=== PATIENT | female | born 1980 | race Two or more races ===

== ENCOUNTER → 2016-06-21 | Outpatient (CLI) | payer OTHER ==
[2016-06-21 11:07] LABS: Basophils # (auto) 0 uL; Basophils % (auto) 0.4 % (0.0-2.0); Eosinophils # (auto) 0.3 uL; Eosinophils % (auto) 3.3 % (0.0-7.0); Hematocrit 44.6 % (36.0-46.0); Hemoglobin 14.8 g/dL (12.2-16.2); Lymphocytes # (auto) 1.8 uL; Lymphocytes % (auto) 19.5 % (10.0-50.0); Mean Corpuscular Hemoglobin 29.4 pg (28.0-32.0); Mean Corpuscular Hgb Conc. 33.2 g/dL (32.0-36.0); Mean Corpuscular Volume 88.6 fL (80.0-100.0); Mean Platelet Volume 6.9 fL (7.4-10.4); Monocytes # (auto) 0.5 uL; Monocytes % (auto) 5.6 % (0.0-12.0); Neutrophils # (auto) 6.6 uL; Neutrophils % (auto) 71.2 % (37.0-80.0); Platelet Count (auto) 406 10^3/uL (140-450); Red Cell Distribution Width 12.3 % (11.6-16.0); White Blood Cell 9.2 10^3/uL (4.4-10.8)
[2016-06-21 11:25] LABS: Albumin 3.8 g/dL (3.4-5.0); BUN/Creatinine Ratio 10.7; Bilirubin, Total 0.4 mg/dL (0.2-1.0); Calcium 8.2 mg/dL (8.5-10.1); Total Protein 7.7 g/dL (6.4-8.2)
[2016-06-21 11:28] LABS: Urine Bilirubin Negative (Negative); Urine Blood Negative /uL (Negative); Urine Color Yellow (Yellow); Urine Glucose Normal (Normal); Urine Ketone Negative (Negative); Urine Mucus FEW (None Seen); Urine Nitrite Negative (Negative); Urine RBC <1 /hpf (0 - 4); Urine Squamous Epithelial Cell FEW /hpf (<5); Urine Urobilinogen Normal (Negative); Urine pH 5.5 (5.0-8.0)
== END | disposition home or self-care (01) ==
LOC: LAB 09:43
PROVIDERS: ATTEND Internal Medicine
DX: Z00.00 Encounter for general adult medical examination without abnormal findings (principal); I10 Essential (primary) hypertension; E55.9 Vitamin D deficiency, unspecified
CPT/HCPCS: 36415; 80053; 80061; 81001; 82306; 84439; 84443; 84481; 85025

== ENCOUNTER → 2016-11-09 | Outpatient (CLI) | payer OTHER | END | disposition home or self-care (01) | LOC: LAB 11:08 | PROVIDERS: ATTEND Internal Medicine | DX: Z74.09 Other reduced mobility (principal) | CPT/HCPCS: 36415; 85652; 86141 ==

== ENCOUNTER → 2018-06-18 | Outpatient (CLI) | payer OTHER ==
[2018-06-18 12:34] LABS: Basophils # (auto) 0.1 uL; Basophils % (auto) 0.8 % (0.0-2.0); Eosinophils # (auto) 0.4 uL; Eosinophils % (auto) 4.8 % (0.0-7.0); Hematocrit 43.8 % (36.0-46.0); Hemoglobin 14.9 g/dL (12.2-16.2); Lymphocytes # (auto) 1.7 uL; Lymphocytes % (auto) 19.9 % (10.0-50.0); Mean Corpuscular Hemoglobin 30.8 pg (28.0-32.0); Mean Corpuscular Volume 90.4 fL (80.0-100.0); Monocytes # (auto) 0.6 uL; Monocytes % (auto) 6.5 % (0.0-12.0); Neutrophils # (auto) 5.8 uL; Nucleated Red Blood Cells % 0.1 %; Platelet Count (auto) 360 10^3/uL (140-450); Red Blood Cells 4.84 10^6/uL (4.0-5.20); Red Cell Distribution Width 12.3 % (11.8-14.3); White Blood Cell 8.6 10^3/uL (4.4-10.8)
[2018-06-18 13:27] LABS: Albumin 3.8 g/dL (3.4-5.0); BUN/Creatinine Ratio 13.2; Bilirubin, Total 0.5 mg/dL (0.2-1.0); Calcium 8.6 mg/dL (8.5-10.1); Total Protein 7.8 g/dL (6.4-8.2)
== END | disposition home or self-care (01) ==
LOC: LAB 10:50
PROVIDERS: ATTEND Physician Assistant
DX: Z00.00 Encounter for general adult medical examination without abnormal findings (principal); E78.1 Pure hyperglyceridemia; F41.8 Other specified anxiety disorders
CPT/HCPCS: 36415; 80053; 80061; 85025

== ENCOUNTER → 2019-08-21 | Outpatient (CLI) | payer OTHER | END | disposition home or self-care (01) | LOC: LAB 15:26 | PROVIDERS: ATTEND Nurse Practitioner Family | DX: R19.7 Diarrhea, unspecified (principal) | CPT/HCPCS: 87045; 87427; 87493 ==

== ENCOUNTER → 2019-09-03 | Outpatient (CLI) | payer OTHER ==
[2019-09-03 11:24] LABS: Basophils # (auto) 0.1 10 ^3/uL (0-0.2); Basophils % (auto) 1.2 % (0.0-2.0); Eosinophils # (auto) 0.2 10 ^3/uL (0-0.8); Eosinophils % (auto) 2.3 % (0.0-7.0); Hematocrit 43.2 % (36.0-46.0); Hemoglobin 14.5 g/dL (12.2-16.2); Lymphocytes # (auto) 1.8 10 ^3/uL (0.4-5.4); Mean Corpuscular Hgb Conc. 33.7 g/dL (32.0-36.0); Mean Corpuscular Volume 89.1 fL (80.0-100.0); Monocytes # (auto) 0.5 10 ^3/uL (0-1.3); Neutrophils # (auto) 5.1 10 ^3/uL (1.6-8.6); Neutrophils % (auto) 66.5 % (37.0-80.0); Nucleated Red Blood Cells % 0.1 %; Platelet Count (auto) 420 10^3/uL (140-450); Red Blood Cells 4.85 10^6/uL (4.0-5.20); Red Cell Distribution Width 12.5 % (11.8-14.3); White Blood Cell 7.7 10^3/uL (4.4-10.8)
[2019-09-03 11:56] LABS: Albumin 3.9 g/dL (3.4-5.0); BUN/Creatinine Ratio 17.9; Calcium 8.5 mg/dL (8.5-10.1); Potassium 3.8 mmol/L (3.5-5.1)
[2019-09-03 11:59] LABS: Bilirubin, Total 0.4 mg/dL (0.2-1.0); Total Protein 7.8 g/dL (6.4-8.2)
== END | disposition home or self-care (01) ==
LOC: LAB 11:07
PROVIDERS: ATTEND Physician Assistant
DX: Z00.00 Encounter for general adult medical examination without abnormal findings (principal); E78.1 Pure hyperglyceridemia; R94.5 Abnormal results of liver function studies
CPT/HCPCS: 36415; 80053; 80061; 85025

== ENCOUNTER → 2021-05-20 | Outpatient (CLI) | payer OTHER ==
[2021-05-20 09:48] LABS: Basophils # (auto) 0.1 10 ^3/uL (0-0.2); Basophils % (auto) 0.7 % (0.0-2.0); Eosinophils # (auto) 0.2 10 ^3/uL (0-0.8); Eosinophils % (auto) 2.4 % (0.0-7.0); Hematocrit 40.5 % (36.0-46.0); Hemoglobin 13.8 g/dL (12.2-16.2); Lymphocytes # (auto) 1.8 10 ^3/uL (0.4-5.4); Lymphocytes % (auto) 24.3 % (10.0-50.0); Mean Corpuscular Hemoglobin 29.8 pg (28.0-32.0); Mean Corpuscular Hgb Conc. 34.1 g/dL (32.0-36.0); Mean Corpuscular Volume 87.4 fL (80.0-100.0); Monocytes # (auto) 0.4 10 ^3/uL (0-1.3); Monocytes % (auto) 5.8 % (0.0-12.0); Neutrophils % (auto) 66.8 % (37.0-80.0); Red Blood Cells 4.63 10^6/uL (4.0-5.20); Red Cell Distribution Width 12.4 % (11.8-14.3); White Blood Cell 7.5 10^3/uL (4.4-10.8)
[2021-05-20 11:33] LABS: Potassium 3.9 mmol/L (3.5-5.1)
[2021-05-20 12:05] LABS: Albumin 3.4 g/dL (3.4-5.0); BUN/Creatinine Ratio 8.3; Bilirubin, Total 0.4 mg/dL (0.2-1.0); Calcium 8.6 mg/dL (8.5-10.1); Total Protein 7.2 g/dL (6.4-8.2)
== END | disposition home or self-care (01) ==
LOC: LAB 09:20
PROVIDERS: ATTEND Nurse Practitioner Family
DX: Z00.00 Encounter for general adult medical examination without abnormal findings (principal); E78.1 Pure hyperglyceridemia; R94.5 Abnormal results of liver function studies; J38.2 Nodules of vocal cords
CPT/HCPCS: 36415; 80053; 80061; 85025

== ENCOUNTER → 2021-06-16 | Outpatient (CLI) | payer OTHER ==
[2021-06-16 11:38] LABS: Albumin 3.7 g/dL (3.4-5.0); Bilirubin, Direct 0.1 mg/dL (0-0.2); Bilirubin, Total 0.4 mg/dL (0.2-1.0); Total Protein 7.7 g/dL (6.4-8.2)
[2021-06-16 18:43] LABS: Hepatitis A Ab IgM Negative; Hepatitis B Core IgM Negative; Hepatitis C Antibody Negative (Negative)
== END | disposition home or self-care (01) ==
LOC: LAB 10:40
PROVIDERS: ATTEND Nurse Practitioner Family
DX: R94.5 Abnormal results of liver function studies (principal)
CPT/HCPCS: 36415; 80076; 86705; 86709; 86803; 87340

== ENCOUNTER → 2021-12-30 | Outpatient (CLI) | payer OTHER ==
[2021-12-30 14:05] LABS: BUN/Creatinine Ratio 19.2; Calcium 9.1 mg/dL (8.5-10.1); Potassium 3.8 mmol/L (3.5-5.1)
== END | disposition home or self-care (01) ==
LOC: LAB 12:00
PROVIDERS: ATTEND Nurse Practitioner Family
DX: K52.9 Noninfective gastroenteritis and colitis, unspecified (principal); T78.1XXA Other adverse food reactions, not elsewhere classified, initial encounter
CPT/HCPCS: 36415; 80048; 82785

== ENCOUNTER 2022-09-08 09:00 | Day surgery (SDC) | payer OTHER ==
[2022-09-06 07:23] LABS: Basophils # (auto) 0.1 10 ^3/uL (0-0.2); Basophils % (auto) 0.7 % (0.0-2.0); Eosinophils # (auto) 0.2 10 ^3/uL (0-0.8); Eosinophils % (auto) 2.3 % (0.0-7.0); Hematocrit 39.9 % (36.0-46.0); Hemoglobin 13.7 g/dL (12.2-16.2); Lymphocytes # (auto) 2.2 10 ^3/uL (0.4-5.4); Lymphocytes % (auto) 26.7 % (10.0-50.0); Mean Corpuscular Hemoglobin 30.4 pg (28.0-32.0); Mean Corpuscular Hgb Conc. 34.4 g/dL (32.0-36.0); Mean Corpuscular Volume 88.1 fL (80.0-100.0); Monocytes # (auto) 0.6 10 ^3/uL (0-1.3); Monocytes % (auto) 7.1 % (0.0-12.0); Neutrophils # (auto) 5.3 10 ^3/uL (1.6-8.6); Neutrophils % (auto) 63.2 % (37.0-80.0); Nucleated Red Blood Cells % 0.1 %; Red Blood Cells 4.52 10^6/uL (4.0-5.20); Red Cell Distribution Width 12.5 % (11.8-14.3); White Blood Cell 8.3 10^3/uL (4.4-10.8)
[2022-09-06 07:49] LABS: INR 0.98 (0.9-1.15); Partial Thromboplastin Time 30.1 SEC (24.5-34.5)
[2022-09-06 08:13] LABS: Albumin 3.3 g/dL (3.4-5.0); Calcium 7.9 mg/dL (8.5-10.1); Potassium 3.8 mmol/L (3.5-5.1); Urine Bacteria FEW /hpf (None Seen); Urine Blood 1+ /uL (Negative); Urine Mucus FEW (None Seen); Urine Specific Gravity 1.024 (1.001-1.035); Urine WBC 6 /hpf (0 - 5)
[2022-09-06 08:16] LABS: BUN/Creatinine Ratio 12.9 (10.0-20.0); Bilirubin, Total 0.3 mg/dL (0.2-1.0)
[~2022-09-08] VITALS: Ht 144.8 cm; Wt 59.0 kg
[~2022-09-08 09:00] MED LIST: FEXO-42 PO
[2022-09-08] MEDS ORDERED: MIDAZOLAM HCL 2MG/2ML 2ml VIAL (1mg/ml) ONE (09:54)
[2022-09-08] MEDS ORDERED: fentaNYL CITRATE 100 MCG/2 ML VL ONE (09:54)
[2022-09-08 10:43] VITALS: TEMP 98.1
[2022-09-08] MEDS ORDERED: ONDANSETRON HCL 4 MG/2 ML VIAL IV PRN (11:00)
[2022-09-08 11:15] VITALS: BP 124/78; PULSE 80; RESP 16; O2SAT 97
[2022-09-08] MEDS ORDERED: PROPOFOL 10 MG/ML 20 ML IV ONE (11:21)
[2022-09-08] MEDS ORDERED: LIDOCAINE 2% (LOCAL ANESTH.) PF 5ml SDV ONE (11:21)
== END 2022-09-08 11:20 | disposition home or self-care (01) ==
LOC: GI 09:00
PROVIDERS: ATTEND Internal Medicine Gastroenterology
DX: R19.4 Change in bowel habit (principal); K29.90 Gastroduodenitis, unspecified, without bleeding; K64.8 Other hemorrhoids; Z98.890 Other specified postprocedural states
CPT/HCPCS: 36415; 43239; 45378; 80053; 81001; 81025; 84702; 85025; 85610; 85730; J2001; J2250; J2704; J3010; J7030

== ENCOUNTER 2023-08-25 12:19 | Inpatient (IN) | payer OTHER ==
[~2023-08-25] VITALS: Ht 144.8 cm; Wt 65.0 kg
[2023-08-25 13:17] LABS: Basophils # (auto) 0 10 ^3/uL (0-0.2); Basophils % (auto) 0.1 % (0.0-2.0); Eosinophils # (auto) 0.1 10 ^3/uL (0-0.8); Eosinophils % (auto) 0.6 % (0.0-7.0); Hemoglobin 14.6 g/dL (12.2-16.2); Lymphocytes # (auto) 1.2 10 ^3/uL (0.4-5.4); Lymphocytes % (auto) 6.7 % (10.0-50.0); Mean Corpuscular Hemoglobin 29.9 pg (28.0-32.0); Mean Corpuscular Hgb Conc. 33.8 g/dL (32.0-36.0); Mean Corpuscular Volume 88.3 fL (80.0-100.0); Monocytes # (auto) 0.8 10 ^3/uL (0-1.3); Monocytes % (auto) 4.3 % (0.0-12.0); Neutrophils # (auto) 16.1 10 ^3/uL (1.6-8.6); Neutrophils % (auto) 88.3 % (37.0-80.0); Red Blood Cells 4.88 10^6/uL (4.0-5.20); Red Cell Distribution Width 12.3 % (11.8-14.3); White Blood Cell 18.2 10^3/uL (4.4-10.8)
[2023-08-25] MEDS: KETOROLAC TROMETH 30 MG/ML 1ML VIAL IV ONE (13:26)
[2023-08-25] MEDS: METOCLOPRAMIDE HCL 5MG/ml INJ 2ml VIAL IV ONE (13:26)
[2023-08-25] MEDS: SODIUM CHLORIDE 0.9% 1,000 ML IV ONE (13:28)
[2023-08-25] MEDS: SODIUM CHLORIDE 0.9% 1,000 ML IVB ONE (13:28)
[2023-08-25 13:36] LABS: Alanine Aminotransferase 48 U/L (7-40); Albumin 4.4 g/dL (3.2-4.8); Alkaline Phosphatase 97 U/L (46-116); Anion Gap 8 (5-15); Aspartate Aminotransferase 30 U/L (13-40); BUN/Creatinine Ratio 13.6 (10.0-20.0); Blood Urea Nitrogen 8 mg/dL (9-23); Calcium 9.5 mg/dL (8.7-10.4); Carbon Dioxide 23 mmol/L (20-30); Chloride 108 mmol/L (98-107); Glucose 94 mg/dL (74-106); Lipase 41 U/L (12-53); Potassium 4.1 mmol/L (3.5-5.1); Sodium 139 mmol/L (136-145)
[2023-08-25 13:37] LABS: Bilirubin, Total 0.8 mg/dL (0.2-1.0)
[2023-08-25 14:07] LABS: Urine Bacteria None Seen /hpf (None Seen)
[2023-08-25 14:14] LABS: Urine Blood 1+ /uL (Negative); Urine Clarity Clear (Clear); Urine Color Yellow (Yellow); Urine Mucus FEW (None Seen); Urine Protein, UAD Negative (Negative); Urine Specific Gravity 1.023 (1.001-1.035); Urine Urobilinogen Normal (Negative); Urine WBC 11 /hpf (0 - 5); Urine pH 5.5 (5.0-9.0)
[2023-08-25] MEDS: IOHEXOL 300 MG/ML 100ML BOTTLE IJ ONE (14:33)
[2023-08-25] MEDS: diphenhdrAMINE HCL 50 MG/1 ML VL IM ONE (15:30)
[2023-08-25] MEDS: metroNIDAZOLE 500MG/100ML 100 ML IV ONE (16:19)
[2023-08-25] MEDS: cefTRIAXone 1GM/50ML D5W 50 ML IV ONE (16:20)
[2023-08-25 16:29] VITALS: PULSE 78; RESP 16; O2SAT 96
[2023-08-25 16:32] LABS: INR 1.02 (0.9-1.15); Prothrombin Time 10.8 sec (9.3-11.8)
[2023-08-25] MEDS: MORPHINE SULFATE 4 MG/ML SYR/VIAL IV ONE (16:35)
[2023-08-25] MEDS: ONDANSETRON HCL 4 MG/2 ML VIAL IV ONE (16:35)
[2023-08-25 17:27] VITALS: PULSE 57; RESP 17; O2SAT 95
[2023-08-25 19:30] VITALS: PULSE 76; RESP 21; O2SAT 96
[2023-08-25] MEDS ORDERED: ONDANSETRON HCL 4 MG/2 ML VIAL IV PRN (23:15)
[2023-08-25] MEDS ORDERED: DOCUSATE SOD 100 MG CAP PO PRN (23:15)
[2023-08-25] MEDS: D5W/SOD CHLO 0.9% 1,000 ML IV SCH (23:15)
[2023-08-26] VITALS (10 sets, daily range): BP systolic 83–98; BP diastolic 49–67; PULSE 54–102; RESP 12–19; TEMP 97.8–98.1; O2SAT 94–100
[2023-08-26] MEDS ORDERED: NITROGLYCERIN 0.4 MG SL TAB SL PRN
[2023-08-26] MEDS ORDERED: MORPHINE SULFATE INJ 2 MG/ml SYRG IV PRN
[2023-08-26] MEDS: ACETAMINOPHEN 325 MG TAB PO PRN (00:06)
[2023-08-26] MEDS: metroNIDAZOLE 500MG/100ML 100 ML IV SCH (00:22)
[2023-08-26] MEDS ORDERED: CETI-120 PO (01:45)
[2023-08-26] MEDS ORDERED: IBUP-1455 PO (01:47)
[2023-08-26] MEDS: MORPHINE SULFATE INJ 2 MG/ml SYRG IV PRN (02:45)
[2023-08-26 05:23] LABS: Basophils # (auto) 0.1 10 ^3/uL (0-0.2); Basophils % (auto) 0.8 % (0.0-2.0); Eosinophils # (auto) 0.2 10 ^3/uL (0-0.8); Eosinophils % (auto) 2.2 % (0.0-7.0); Hematocrit 36.4 % (36.0-46.0); Hemoglobin 12.3 g/dL (12.2-16.2); Lymphocytes # (auto) 2.1 10 ^3/uL (0.4-5.4); Lymphocytes % (auto) 24.5 % (10.0-50.0); Mean Corpuscular Hemoglobin 30.6 pg (28.0-32.0); Mean Corpuscular Hgb Conc. 33.9 g/dL (32.0-36.0); Mean Corpuscular Volume 90.4 fL (80.0-100.0); Monocytes # (auto) 0.7 10 ^3/uL (0-1.3); Monocytes % (auto) 8.3 % (0.0-12.0); Neutrophils # (auto) 5.6 10 ^3/uL (1.6-8.6); Neutrophils % (auto) 64.2 % (37.0-80.0); Nucleated Red Blood Cells % 0.1 %; Red Blood Cells 4.02 10^6/uL (4.0-5.20); Red Cell Distribution Width 12.8 % (11.8-14.3); White Blood Cell 8.7 10^3/uL (4.4-10.8)
[2023-08-26 05:30] LABS: Alanine Aminotransferase 28 U/L (7-40); Albumin 3.4 g/dL (3.2-4.8); Alkaline Phosphatase 72 U/L (46-116); Anion Gap 7 (5-15); Aspartate Aminotransferase 26 U/L (13-40); BUN/Creatinine Ratio 9.1 (10.0-20.0); Blood Urea Nitrogen 5 mg/dL (9-23); Calcium 8.1 mg/dL (8.5-10.1); Carbon Dioxide 20 mmol/L (20-30); Chloride 112 mmol/L (98-107); Glucose 106 mg/dL (74-106); Potassium 3.7 mmol/L (3.5-5.1); Sodium 139 mmol/L (136-145)
[2023-08-26 05:31] LABS: Bilirubin, Total 0.8 mg/dL (0.2-1.0); Total Protein 5.4 g/dL (5.7-8.2)
[2023-08-26] MEDS ORDERED: ACETAMINOPHEN IV 1000 MG/100ML (10MG/ML) IV ONE (10:45)
[2023-08-26] MEDS ORDERED: CELECOXIB 100 MG CAP PO ONE (10:45)
[2023-08-26] MEDS ORDERED: GABAPENTIN 400 MG CAP PO ONE (10:45)
[2023-08-26] MEDS ORDERED: GLYCOPYRROLATE 0.2 MG/ML 1ML VIAL ONE (10:58)
[2023-08-26] MEDS ORDERED: DexAMETHasone SOD PHOS 10MG/1ML VIAL INJ ONE (10:58)
[2023-08-26] MEDS ORDERED: ONDANSETRON HCL 4 MG/2 ML VIAL ONE (10:58)
[2023-08-26] MEDS ORDERED: PROPOFOL 10 MG/ML 20 ML IV ONE (10:58)
[2023-08-26] MEDS ORDERED: ROCURONIUM 10MG/ML 10ML VIAL IV ONE (10:58)
[2023-08-26] MEDS ORDERED: LIDOCAINE 2% (LOCAL ANESTH.) PF 5ml SDV ONE ×2 (10:58→11:00)
[2023-08-26] MEDS ORDERED: KETOROLAC TROMETH 30 MG/ML 1ML VIAL ONE (10:58)
[2023-08-26] MEDS ORDERED: KETAMINE 50mg/ML 1ml syringe ONE (10:59)
[2023-08-26] MEDS ORDERED: fentaNYL CITRATE 100 MCG/2 ML VL ONE (10:59)
[2023-08-26] MEDS ORDERED: SUGAMMADEX 200mg/2ml Vial (100MG/ML) IV ONE (11:00)
[2023-08-26] MEDS ORDERED: LIDOCAINE HCL 2% TOP JELLY 5ML TOP ONE (11:02)
[2023-08-26] MEDS ORDERED: levoFLOXacin 500MG 100 ML IV ONE (12:15)
[2023-08-26] MEDS: LIDOCAINE W/ EPINEPHRINE 1% 20ML VIAL ONE (13:37)
[2023-08-26] MEDS ORDERED: ePHEDrine SULFATE 50 MG/ML AMP IV PRN (14:30)
[2023-08-26] MEDS ORDERED: FLUMAZENIL 0.1 MG/ML INJ 10ML MDV IV PRN (14:30)
[2023-08-26] MEDS ORDERED: hydrALAZINE HCL 20 MG/ML VL IV PRN (14:30)
[2023-08-26] MEDS ORDERED: ONDANSETRON HCL 4 MG/2 ML VIAL IV PRN (14:30)
[2023-08-26] MEDS ORDERED: fentaNYL CITRATE 100 MCG/2 ML VL IV PRN (14:30)
[2023-08-26] MEDS ORDERED: NALOXONE HCL 0.4 MG/ML VIAL IV PRN (14:30)
[2023-08-26] MEDS ORDERED: LABETALOL HCL 5 MG/ML 4ML SYRINGE IV PRN (14:30)
[2023-08-26] MEDS: oxyCODONE HCL 5MG TAB PO PRN (14:48)
[2023-08-26] MEDS: HYDROmorphone HCL 2 MG/ML VL/or syr IV PRN (14:49)
[2023-08-26] MEDS: cefTRIAXone 1GM/50ML D5W 50 ML IV SCH (15:50)
[2023-08-27] VITALS (7 sets, daily range): BP systolic 88–106; BP diastolic 47–65; PULSE 64–86; RESP 15–17; TEMP 98.1–98.4; O2SAT 93–99
[2023-08-27] MEDS: diphenhdrAMINE HCL 25 MG CAP PO PRN (01:26)
[2023-08-27 11:46] LABS: Basophils # (auto) 0 10 ^3/uL (0-0.2); Basophils % (auto) 0.1 % (0.0-2.0); Eosinophils # (auto) 0 10 ^3/uL (0-0.8); Eosinophils % (auto) 0.1 % (0.0-7.0); Hematocrit 32.8 % (36.0-46.0); Hemoglobin 11.1 g/dL (12.2-16.2); Lymphocytes # (auto) 1.2 10 ^3/uL (0.4-5.4); Lymphocytes % (auto) 10.2 % (10.0-50.0); Mean Corpuscular Hemoglobin 29.9 pg (28.0-32.0); Mean Corpuscular Hgb Conc. 33.8 g/dL (32.0-36.0); Mean Corpuscular Volume 88.5 fL (80.0-100.0); Monocytes # (auto) 0.8 10 ^3/uL (0-1.3); Monocytes % (auto) 7.1 % (0.0-12.0); Neutrophils # (auto) 9.5 10 ^3/uL (1.6-8.6); Neutrophils % (auto) 82.5 % (37.0-80.0); Red Cell Distribution Width 12.2 % (11.8-14.3); White Blood Cell 11.5 10^3/uL (4.4-10.8)
[2023-08-27 12:19] LABS: Chloride 113 mmol/L (98-107); Potassium 3.9 mmol/L (3.5-5.1); Sodium 142 mmol/L (136-145)
[2023-08-27 12:20] LABS: Anion Gap 11 (5-15); Carbon Dioxide 18 mmol/L (20-30)
[2023-08-27 12:21] LABS: Calcium 8.3 mg/dL (8.7-10.4)
[2023-08-27 12:26] LABS: Glucose 122 mg/dL (74-106)
[2023-08-27 12:42] LABS: BUN/Creatinine Ratio 8.9 (10.0-20.0); Blood Urea Nitrogen < 5 mg/dL (9-23)
[2023-08-27] MEDS ORDERED: MET500T PO (14:44)
[2023-08-27] MEDS ORDERED: LEVO500T91 PO (14:44)
[2023-08-27] MEDS ORDERED: DOCU-94 PO (14:44)
[2023-08-27] MEDS ORDERED: HYDR1TAB97 PO (14:44)
[2023-08-27 15:00] LABS: Hepatitis C Antibody Negative (Negative)
[2023-08-27] MEDS: HYDROcodone-ACET 5/325MG TAB PO PRN (18:27)
[2023-08-28 03:41] LABS: Hepatitis B Surface Antigen Negative (Negative)
== END 2023-08-27 19:15 | disposition home or self-care (01) | DRG 398 ==
LOC: ER 12:19 → TELE 23:48 → TELE-WESTW 08-26 01:16
PROVIDERS: ADMIT Nurse Practitioner Family; ATTEND Internal Medicine
PROC: 0DTJ4ZZ Resection of Appendix, Percutaneous Endoscopic Approach (ICD-10-PCS; principal; 2023-08-26 13:17)
DX: K35.80 Unspecified acute appendicitis (principal); N30.00 Acute cystitis without hematuria; K82.4 Cholesterolosis of gallbladder; K76.9 Liver disease, unspecified; M41.9 Scoliosis, unspecified; E66.9 Obesity, unspecified; Z68.31 Body mass index [BMI] 31.0-31.9, adult; Z79.899 Other long term (current) drug therapy
CPT/HCPCS: 36415; 71046; 74177; 80048; 80053; 81001; 83690; 83735; 84702; 85025; 85610; 85730; 86803; 86850; 86900; 86901; 87086; 87340; G0378; J0131; J1100; J1885; J1956; J2001; J2405; J2704; J3490; J7042

== ENCOUNTER → 2023-11-08 | Outpatient (CLI) | payer OTHER ==
[~2023-11-08] MED LIST changes: +CETI-120 PO; +DOCU-94 PO; +HYDR1TAB97 PO; +IBUP-1455 PO; +LEVO500T91 PO; +MET500T PO
[2023-11-08 11:15] LABS: Basophils # (auto) 0.1 10 ^3/uL (0-0.2); Eosinophils # (auto) 0.1 10 ^3/uL (0-0.8); Hemoglobin 15.5 g/dL (12.2-16.2); Lymphocytes # (auto) 2.1 10 ^3/uL (0.4-5.4); Lymphocytes % (auto) 22.4 % (10.0-50.0); Monocytes # (auto) 0.6 10 ^3/uL (0-1.3); Nucleated Red Blood Cells % 0.1 %; Red Cell Distribution Width 12.6 % (11.8-14.3)
[2023-11-08 11:16] LABS: Basophils % (auto) 0.7 % (0.0-2.0); Eosinophils % (auto) 1.6 % (0.0-7.0); Hematocrit 44.5 % (36.0-46.0); Mean Corpuscular Hemoglobin 30.5 pg (28.0-32.0); Mean Corpuscular Hgb Conc. 34.8 g/dL (32.0-36.0); Mean Corpuscular Volume 87.7 fL (80.0-100.0); Monocytes % (auto) 6.8 % (0.0-12.0); Neutrophils # (auto) 6.5 10 ^3/uL (1.6-8.6); Neutrophils % (auto) 68.5 % (37.0-80.0); Platelet Count (auto) 446 10^3/uL (140-450); Red Blood Cells 5.08 10^6/uL (4.0-5.20); White Blood Cell 9.5 10^3/uL (4.4-10.8)
[2023-11-08 11:41] LABS: Alanine Aminotransferase 37 U/L (7-40); Albumin 4.7 g/dL (3.2-4.8); Alkaline Phosphatase 113 U/L (46-116); Anion Gap 7 (5-15); Aspartate Aminotransferase 19 U/L (13-40); BUN/Creatinine Ratio 12.7 (10.0-20.0); Blood Urea Nitrogen 9 mg/dL (9-23); Calcium 9.6 mg/dL (8.7-10.4); Carbon Dioxide 26 mmol/L (20-30); Chloride 107 mmol/L (98-107); Glucose 97 mg/dL (74-106); LDL Cholesterol 116 mg/dL (< 100); Potassium 4.1 mmol/L (3.5-5.1); Sodium 140 mmol/L (136-145); Triglycerides 212 mg/dL (< 150)
[2023-11-08 11:42] LABS: Bilirubin, Total 0.8 mg/dL (0.2-1.0); Cholesterol 187 mg/dL (< 200); HDL Cholesterol 45 mg/dL (40-59); Total Protein 7.6 g/dL (5.7-8.2)
== END | disposition home or self-care (01) ==
LOC: LAB 10:57
PROVIDERS: ATTEND Nurse Practitioner Family
DX: E78.1 Pure hyperglyceridemia (principal); Z00.00 Encounter for general adult medical examination without abnormal findings
CPT/HCPCS: 36415; 80053; 80061; 84443; 85025

== ENCOUNTER → 2024-05-30 | Outpatient (CLI) | payer OTHER | END | disposition home or self-care (01) | LOC: LAB 15:44 | PROVIDERS: ATTEND Internal Medicine Gastroenterology | DX: R74.8 Abnormal levels of other serum enzymes (principal) | CPT/HCPCS: 36415; 80074; 82728; 86038 ==